=== PATIENT | female | born 1975 | race Caucasian/White ===

== ENCOUNTER 2019-02-10 19:28 | Emergency (ER) | payer OTHER ==
--- NOTE | 2019-02-10 20:50 | ER ---
Nurse's Notes [facility] Name: Joanna Ansari Age: 43 yrs Sex: Female : 1975 Arrival Date: 02/10/2019 Time: 19:35 Bed Waiting [facility] MD: Diagnosis: Streptococcal pharyngitis Presentation: 02/10 19:50 Presenting complaint: Patient states: Congestion, sore throat for the past few days. aj1 Denies fever. Transition of care: patient was not received from another setting of care. Onset of symptoms was February 10, 2019. Risk Assessment: Do you want to hurt yourself or someone else? Patient reports no desire to harm self or others. Initial Sepsis Screen: Does the patient meet any 2 criteria? No. Patient's initial sepsis screen is negative. Does the patient have a suspected source of infection? No. Patient's initial sepsis screen is negative. Care prior to arrival: None. 19:50 Method Of Arrival: Ambulatory aj1 19:50 Acuity: LOLA 4 aj1 Triage Assessment: 19:51 General: Appears in no apparent distress. comfortable, Behavior is calm, cooperative, aj1 appropriate for age. Pain: Complains of pain in left aspect of posterior pharynx and right aspect of posterior pharynx. EENT: Reports nasal congestion nasal discharge sore throat. Neuro: Level of Consciousness is awake, alert, obeys commands. Cardiovascular: Patient's skin is warm and dry. Respiratory: Airway is patent Respiratory effort is even, unlabored, Respiratory pattern is regular, symmetrical. 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 - Social history:: Smoking status: Patient/guardian denies using tobacco. - Ebola Screening: : Patient denies travel to an Ebola-affected area in the 21 days before illness onset. Screenin:43 Abuse screen: Denies threats or abuse. Denies injuries from another. Nutritional aj1 screening: No deficits noted. Tuberculosis screening: No symptoms or risk factors identified. 20:43 Fall Risk None identified. aj1 Assessment: 20:43 General: Appears in no apparent distress. comfortable, Behavior is calm, cooperative, aj1 appropriate for age. Pain: Complains of pain in right aspect of posterior pharynx and left aspect of posterior pharynx. Neuro: Level of Consciousness is awake, alert, obeys commands, Oriented to person, place, time, situation. Cardiovascular: Patient's skin is warm and dry. Respiratory: Airway is patent Respiratory effort is even, unlabored, Respiratory pattern is regular, symmetrical, Breath sounds are clear bilaterally. GI: No signs and/or symptoms were reported involving the gastrointestinal system. : No signs and/or symptoms were reported regarding the genitourinary system. EENT: Throat is reddened has patchy exudate has enlarged tonsils bilaterally. Derm: No signs and/or symptoms reported regarding the dermatologic system. Skin is pink, warm \T\ dry. normal. Musculoskeletal: No signs and/or symptoms reported regarding the musculoskeletal system. Circulation, motion, and sensation intact. Vital Signs: 19:51 BP 121 / 77; Pulse 62; Resp 18; Temp 97.2; Pulse Ox 98% on R/A; Weight 72.57 kg (R); aj1 Height 5 ft. 6 in. (167.64 cm) (R); 19:51 Body Mass Index 25.82 (72.57 kg, 167.64 cm) aj1 ED Course: 19:35 Patient arrived in ED. ds1 19:51 Triage completed. aj1 19:51 Arm band placed on Patient placed in waiting room, Patient notified of wait time. aj1 20:41 Santy Crook PA is PHCP. [facility] 20:41 Juvencio Pete MD is Attending Physician. [facility] 20:42 Holly Balbuena, MARCELO is Primary Nurse. aj1 20:43 Patient has correct armband on for positive identification. Bed in low position. Call aj1 light in reach. Side rails up X 1. 20:43 No provider procedures requiring assistance completed. Patient did not have IV access aj during this emergency room visit. Administered Medications: No medications were administered Outcome: 20:50 Discharge ordered by . [facility] 20:57 Discharged to home ambulatory. aj1 20:57 Condition: good 20:57 Discharge instructions given to patient, Instructed on discharge instructions, follow up and referral plans. medication usage, Demonstrated understanding of instructions, follow-up care, medications, Prescriptions given X 1. 20:58 Patient left the ED. aj1 Signatures: Holly Balbuena RN RN aj1 Santy Crook PA PA jmm Sanford, Demi ds1
--- NOTE | 2019-02-10 20:51 | EDPHYS ---
Physician Documentation [facility] Name: Joanna Ansari Age: 43 yrs Sex: Female : 1975 Arrival Date: 02/10/2019 Time: 19:35 Bed Waiting Private MD: ED Physician Juvencio Pete HPI: 02/10 20:47 This 43 yrs old Female presents to ER via Ambulatory with complaints of Sore jmm Throat. 20:47 The patient presents with sore throat. Onset: The symptoms/episode began/occurred jmm gradually, 2 day(s) ago. Modifying factors: The symptoms are alleviated by nothing, the symptoms are aggravated by swallowing. Associated signs and symptoms: Pertinent negatives cough. This is a 43 year old female with no chronic medical conditions that presents to the ED with complaints of sore throat, fever, beginning 2 days ago. . 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 - Social history:: Smoking status: Patient/guardian denies using tobacco. - Ebola Screening: : Patient denies travel to an Ebola-affected area in the 21 days before illness onset. ROS: 20:47 Cardiovascular: Negative for chest pain, palpitations, and edema, Respiratory: Negative jmm for shortness of breath, cough, wheezing, and pleuritic chest pain. 20:47 Constitutional: Positive for body aches, chills, fever. 20:47 ENT: Positive for sore throat. 20:47 All other systems are negative. Exam: 20:47 Constitutional: This is a well developed, well nourished patient who is awake, alert, jmm and in no acute distress. Head/Face: atraumatic. Eyes: EOMI, no conjunctival erythema appreciated 20:47 Neck: Trachea midline, Supple Chest/axilla: Normal chest wall appearance and motion. Cardiovascular: Regular rate and rhythm. No edema appreciated Respiratory: Normal respirations, no respiratory distress appreciated Abdomen/GI: Non distended, soft Back: Normal ROM Skin: General appearance color normal MS/ Extremity: Moves all extremities, no obvious deformities appreciated, no edema noted to the lower extremities Neuro: Awake and alert, normal gait Psych: Behavior is normal, Mood is normal, Patient is cooperative and pleasant 20:47 ENT: Posterior pharynx: Uvula: midline, erythema, that is moderate, exudate, that is moderate. Vital Signs: 19:51 BP 121 / 77; Pulse 62; Resp 18; Temp 97.2; Pulse Ox 98% on R/A; Weight 72.57 kg (R); aj1 Height 5 ft. 6 in. (167.64 cm) (R); 19:51 Body Mass Index 25.82 (72.57 kg, 167.64 cm) aj1 MDM: 20:48 Data reviewed: vital signs, nurses notes. Counseling: I had a detailed discussion with fito the patient and/or guardian regarding: the historical points, exam findings, and any diagnostic results supporting the discharge/admit diagnosis, the need for outpatient follow up, to return to the emergency department if symptoms worsen or persist or if there are any questions or concerns that arise at home. ED course: Patient is alert and non toxic in appearance in the ED. No signs of resp distress. Patient given strict return precautions. Patient understood and agrees with the plan of care. . 20:50 Patient medically screened. fito 02/10 19:40 Order name: Flu; Complete Time: 20:41 [facility] 02/10 19:40 Order name: Strep; Complete Time: 20:41 [facility] Administered Medications: No medications were administered Disposition: 02/10/19 20:50 Discharged to Home. Impression: Streptococcal pharyngitis. - Condition is Stable. - Discharge Instructions: Strep Throat. - Prescriptions for Clindamycin HCl 300 mg Oral Capsule - take 1 capsule by ORAL route every 6 hours for 10 days; 40 capsule. - Medication Reconciliation Form, Thank You Letter, Antibiotic Education, Prescription Opioid Use form. - Follow up: Private Physician; When: 2 - 3 days; Reason: Recheck today's complaints, Continuance of care, Re-evaluation by your physician. Signatures: Dispatcher [employer] EDHolly Thomas RN RN aj1 Santy Crook PA PA jmm Corrections: (The following items were deleted from the chart) 20:58 20:50 02/10/2019 20:50 Discharged to Home. Impression: Streptococcal pharyngitis. aj1 Condition is Stable. Forms are Medication Reconciliation Form, Thank You Letter, Antibiotic Education, Prescription Opioid Use. Follow up: Private Physician; When: 2 - 3 days; Reason: Recheck today's complaints, Continuance of care, Re-evaluation by your physician. fito
[2019-02-10 22:07] VITALS: BP 121/77; TEMP 97.2; O2SAT 98
== END 2019-02-10 20:58 | disposition home or self-care (01) ==
LOC: ER 19:28
DX: J02.0 Streptococcal pharyngitis (principal); Z88.1 Allergy status to other antibiotic agents
CPT/HCPCS: 87081; 87804; 99282